=== PATIENT | male | born 1965 | race Caucasian/White ===

== ENCOUNTER 2017-04-28 01:31 | Emergency (ER) | payer MEDICAID ==
--- NOTE | 2017-04-28 01:38 | EDPHY ---
H & P Time Seen by Provider: 04/28/17 03:15 HPI/ROS: HPI CHIEF COMPLAINT: "I am having a psychotic break" HISTORY OF PRESENT ILLNESS: This patient 51-year-old male, history of schizophrenia, states that he suicidal and is having a psychotic break. He is, cooperative upon arrival. He denies any focal complaints. He admits that he does multiple drugs and alcohol. He does not have a specific suicidal plan. Past Medical History: Schizophrenia Past Surgical History: No recent surgery Social History: Homeless, polysubstance abuse and alcohol Family History: Noncontributory ROS REVIEW OF SYSTEMS: A comprehensive 10 point review of systems is otherwise negative aside from elements mentioned in the history of present illness. Exam Constitutional unkept, disheveled, triage nursing summary reviewed, vital signs reviewed, awake/alert. Eyes normal conjunctivae and sclera, EOMI, PERRLA. HENT normal inspection, atraumatic, moist mucus membranes, no epistaxis, neck supple/ no meningismus, no raccoon eyes. Respiratory clear to auscultation bilaterally, normal breath sounds, no respiratory distress, no wheezing. Cardiovascular rate normal, regular rhythm, no murmur, no edema, distal pulses normal. Gastrointestinal soft, non-tender, no rebound, no guarding, normal bowel sounds, no distension, no pulsatile mass. Genitourinary no CVA tenderness. Musculoskeletal no midline vertebral tenderness, full range of motion, no calf swelling, no tenderness of extremities, no meningismus, good pulses, neurovascularly intact. Skin pink, warm, & dry, no rash, skin atraumatic. Neurologic awake, alert and oriented x 3, AAOx3, moves all 4 extremities equally, motor intact, sensory intact, CN II-XII intact, normal cerebellar, normal vision, normal speech. Psychiatric normal mood/affect. Heme/Lymph/Immune no lymphadenopathy. Differential Diagnosis: Includes but is not limited to in a particular order acute psychosis, schizophrenia, mood disorder, substance abuse, suicidal ideation Medical Decision Making: Plan for this patient blood draw for medical clearance. Patient will need mental health evaluation. Re-evaluation: 0458: Patient states he is not suicidal. He reports to nursing staff that he wanted a place to sleep tonight and a warm bed and food. Mental health did come and see and evaluate the patient they do not feel that he needs to be on M1 hold. They do not feel that he needs inpatient psychiatric hospitalization. He is not gravely disable. He is not actively suicidal he does not want hurt himself or anybody else he contracts for safety. He has been given resources. He is agreeable on discharge in the morning. Source: Patient, EMS - Medical/Surgical History Hx Asthma: No Hx Chronic Respiratory Disease: No Hx Diabetes: No Hx Cardiac Disease: No Hx Renal Disease: No Hx Cirrhosis: No Hx Alcoholism: No Hx HIV/AIDS: No Hx Splenectomy or Spleen Trauma: No Other PMH: walking pna, bipolar, DEPRESSION. - Social History Smoking Status: Heavy smoker Constitutional: Initial Vital Signs Temperature (C) 36.9 C 04/28/17 01:23 Heart Rate 86 04/28/17 01:23 Respiratory Rate 18 04/28/17 01:23 Blood Pressure 145/83 H 04/28/17 01:23 O2 Sat (%) 96 04/28/17 01:23 O2 Delivery Mode Room Air Allergies/Adverse Reactions: Penicillins Allergy (Severe, Verified 04/28/17 02:01) Anaphylaxis haloperidol [From Haldol] Allergy (Verified 04/28/17 02:01) Home Medications: Medication Instructions Recorded Gabapentin [Neurontin 300 MG (RX)] 600 mg PO TID 04/10/12 Ativan 04/28/17 Gabapentin 04/28/17 Klonopin 04/28/17 Zyprexa 04/28/17 traZODone 04/28/17 Medical Decision Making - Data Points Laboratory Results: Laboratory Results 04/28/17 02:05 04/28/17 02:05 Departure - Departure Disposition: Home, Routine, Self-Care Clinical Impression: Schizophrenia Condition: Fair Instructions: Schizophrenia (ED) Additional Instructions: 1. Follow up with resources you were given today. 2. Return emergency room if you have any worsening symptoms questions or concerns. Return if you have thoughts of wanting to hurt herself or anybody else. Referrals: Patient,NotPresent [Unknown] - As per Instructions
[2017-04-28 01:56] VITALS: RESP 18; TEMP 98.4
[2017-04-28 02:15] LABS: PLATELET COUNT 295 10^3/uL (150-400)
[2017-04-28 06:50] VITALS: BP 144/80; PULSE 71; O2SAT 97
== END 2017-04-28 06:40 | disposition home or self-care (01) ==
LOC: EDUNIT#
DX: F20.9 Schizophrenia, unspecified (principal); F17.200 Nicotine dependence, unspecified, uncomplicated
CPT/HCPCS: 80305; G0480

== ENCOUNTER 2017-08-20 08:37 | Emergency (ER) | payer MEDICAID, OTHER ==
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
[2017-08-20 08:52] LABS: PLATELET COUNT 322 10^3/uL (150-400)
[2017-08-20] MEDS ORDERED: metFORMIN SR 500 MG TAB PO ONE (23:51)
[2017-08-20] MEDS ORDERED: hydrOXYzine HCL 10 MG TAB PO ONE (23:54)
[2017-08-21] MEDS ORDERED: traZODone 50 MG TAB PO ONE (00:30)
[2017-08-21] MEDS ORDERED: hydrOXYzine HCL 50 MG TAB PO ONE ×2 (00:30)
[2017-08-21] MEDS ORDERED: OLANZapine 5 MG TAB PO ONE (00:30)
[2017-08-21 13:18] VITALS: BP 119/81
== END 2017-08-21 13:17 | disposition home or self-care (01) ==
LOC: EDUNIT#
DX: F19.10 Other psychoactive substance abuse, uncomplicated (principal); F25.8 Other schizoaffective disorders; F17.210 Nicotine dependence, cigarettes, uncomplicated
CPT/HCPCS: 80305; G0480

== ENCOUNTER 2017-09-02 06:30 | Emergency (ER) | payer MEDICAID ==
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
[2017-09-02 07:01] LABS: PLATELET COUNT 327 10^3/uL (150-400)
[2017-09-02] MEDS ORDERED: OLANZapine DISINTEGR 10 MG TAB ONE (21:46)
[2017-09-02] MEDS ORDERED: OLANZapine 5 MG TAB PO ONE (21:47)
[2017-09-02] MEDS ORDERED: OLANZapine DISINTEGR 10 MG TAB PO ONE (21:48)
[2017-09-03] MEDS ORDERED: clonazePAM 1 MG TAB PO ONE (01:20)
[2017-09-03 01:50] VITALS: BP 121/74
== END 2017-09-03 01:51 ==
DX: R45.851 Suicidal ideations (principal); F19.10 Other psychoactive substance abuse, uncomplicated; F17.200 Nicotine dependence, unspecified, uncomplicated
CPT/HCPCS: 80305; G0480

== ENCOUNTER 2017-10-30 05:35 | Emergency (ER) | payer OTHER, MEDICAID ==
--- NOTE | 2017-10-30 05:47 | EDPHY ---
H & P Stated Complaint: nausea/diarrhea, ETOH Time Seen by Provider: 10/30/17 05:43 HPI/ROS: Chief Complaint: Nausea, diarrhea constipation from detox HPI: 52-year-old male being sent in from detox for medical clearance. Patient states that he has been having some nausea with some alternating diarrhea and constipation. This has been going on for several months. He is also complaining of pain in his feet. He is a smoker, drinks alcohol daily heavily, uses marijuana and methamphetamines. Denies any other diagnosis of past medical problems. He is compliant with medications. No fevers or chills. No chest pain or shortness of breath. Right now he denies feeling nauseated. Is feeling thirsty and asking for something to drink. ROS: 10 systems were reviewed and were negative except those elements noted in the HPI. Social History: Positive smoking, daily heavy alcohol, occasional methamphetamine and marijuana use Family History: non-contributory Physical Exam: Gen: Awake, Alert, No Distress HEENT: Nose: no rhinorrhea Eyes: PERRLA, EOMI Mouth: Moist mucosa Neck: Supple, no JVD Chest: nontender, lungs clear to auscultation Heart: S1, S2 normal, no murmur Abd: Soft, non-tender, no guarding Back: no CVA tenderness, no midline tenderness Ext: no edema, non-tender Skin: no rash Neuro: CN II-XII intact, Sensation grossly intact, Strength 5/5 in bilateral upper and lower extremities - Personal History Current Tetanus Diphtheria and Acellular Pertussis (TDAP): Unsure - Medical/Surgical History Hx Asthma: No Hx Chronic Respiratory Disease: No Hx Diabetes: No Hx Cardiac Disease: No Hx Renal Disease: No Hx Cirrhosis: No Hx Alcoholism: Yes Hx HIV/AIDS: No Hx Splenectomy or Spleen Trauma: No Other PMH: walking pna, bipolar, DEPRESSION, SCHIZO, PERSONALITY DISORDER - Social History Smoking Status: Heavy smoker Constitutional: Initial Vital Signs Temperature (C) 36.4 C 10/30/17 05:37 Heart Rate 73 10/30/17 05:37 Respiratory Rate 18 10/30/17 05:37 Blood Pressure 133/97 H 10/30/17 05:37 O2 Sat (%) 95 10/30/17 05:37 O2 Delivery Mode Room Air Allergies/Adverse Reactions: Penicillins Allergy (Severe, Verified 10/30/17 05:37) Anaphylaxis haloperidol [From Haldol] Allergy (Verified 10/30/17 05:37) Other-Enter Comments lithium Allergy (Verified 10/30/17 05:37) Other-Enter Comments quetiapine [From Seroquel] Allergy (Verified 10/30/17 05:37) Other-Enter Comments ziprasidone [From Geodon] Allergy (Verified 10/30/17 05:37) Other-Enter Comments Home Medications: Medication Instructions Recorded Cyproheptadine HCl [Periactin 4 MG 4 mg PO HS 09/18/17 (*)] FLUoxetine [Prozac 10 MG (*)] 30 mg PO DAILY 09/18/17 Gabapentin [Neurontin 300 MG (*)] 600 mg PO TID 09/18/17 OLANZapine DISINTEGR [ZyPREXA 15 mg PO HS 09/18/17 ZYDIS (*)] metFORMIN HCL [Glucophage 500 mg 250 mg PO BIDMEAL 09/18/17 (*)] traZODone [traZODONE 50MG (*)] 50 mg PO HS 09/18/17 Medical Decision Making ED Course/Re-evaluation: Patient from the [facility] here for medical clearance. He is not vomiting. He has tolerated p.o. Challenge. Will discharge back to the [facility] with Librium prepack. Patient has a benign exam. No evidence of acute medical process at this time. Patient is at his baseline. No acute psychosis. Denies depression or suicidal ideation at this time. He is not meet any criteria for mental health hold at this time. Departure - Departure Disposition: Home, Routine, Self-Care Clinical Impression: Alcohol withdrawal Condition: Good Instructions: Alcohol Withdrawal (ED), Chlordiazepoxide (By mouth) Additional Instructions: Please seek help to stop drinking alcohol. Referrals: Patient,NotPresent [Unknown] - As per Instructions
[2017-10-30 06:09] VITALS: BP 133/92
[2017-10-30] MEDS ORDERED: CHLORDIAZEPOXIDE 25MG PREPK#6 BTL TAKEHOME ONE (06:10)
== END 2017-10-30 06:28 | disposition home or self-care (01) ==
LOC: EDUNIT#
DX: F10.239 Alcohol dependence with withdrawal, unspecified (principal); F17.200 Nicotine dependence, unspecified, uncomplicated